=== PATIENT | male | born 1980 | race African-American/Black ===

== ENCOUNTER 2016-07-10 05:31 | Emergency (ER) | payer MEDICAID ==
[~2016-07-10] VITALS: Ht 198.1 cm; Wt 93.0 kg
[2016-07-10 05:59] VITALS: BP 140/93
[2016-07-10] MEDS ORDERED: IBUPROFEN 400 MG TABLET ONE (06:17)
[2016-07-10] MEDS ORDERED: DEXAMETHASONE SOD PHOSPHATE 10 MG/ML VIAL ONE (06:17)
[2016-07-10] MEDS: DEXAMETHASONE SOD PHOSPHATE 10 MG/ML VIAL IV ONE (06:22)
[2016-07-10] MEDS: IBUPROFEN 400 MG TABLET PO ONE (06:22)
== END 2016-07-10 06:51 | disposition home or self-care (01) ==
LOC: ER 05:37
DX: J02.9 Acute pharyngitis, unspecified (principal)
CPT/HCPCS: 86403-TC; 87070-TC; A4606; J1100; Z7610

== ENCOUNTER 2016-11-16 12:24 | Emergency (ER) | payer SELFPAY ==
[~2016-11-16] VITALS: Ht 198.1 cm; Wt 93.0 kg
[2016-11-16 12:42] VITALS: BP 153/101
== END 2016-11-16 13:30 | disposition home or self-care (01) ==
LOC: ER 12:31
DX: L25.9 Unspecified contact dermatitis, unspecified cause (principal); L73.9 Follicular disorder, unspecified; F17.200 Nicotine dependence, unspecified, uncomplicated
CPT/HCPCS: A4606; Z7610

== ENCOUNTER 2018-03-18 11:48 | Emergency (ER) | payer SELFPAY ==
[~2018-03-18] VITALS: Ht 198.1 cm; Wt 95.3 kg
[2018-03-18 11:57] VITALS: BP 104/69
== END 2018-03-18 13:49 | disposition home or self-care (01) ==
LOC: ER 11:59
DX: R10.31 Right lower quadrant pain (principal); F10.10 Alcohol abuse, uncomplicated; F17.200 Nicotine dependence, unspecified, uncomplicated; F12.10 Cannabis abuse, uncomplicated; Y90.9 Presence of alcohol in blood, level not specified
CPT/HCPCS: 74018; 99283; A4606; Z7610

== ENCOUNTER 2018-03-23 10:42 | Emergency (ER) | payer SELFPAY ==
[~2018-03-23] VITALS: Ht 198.1 cm; Wt 90.7 kg
[2018-03-23 11:07] VITALS: BP 104/58
== END 2018-03-23 12:15 | disposition home or self-care (01) ==
LOC: ER 10:45
DX: J06.9 Acute upper respiratory infection, unspecified (principal); F12.90 Cannabis use, unspecified, uncomplicated
CPT/HCPCS: 87070; 87880; 99283; A4606; 86403-TC